=== PATIENT | female | born 1960 | race Caucasian/White ===

== ENCOUNTER 2023-11-26 17:03 | Emergency (ER) | payer OTHER ==
[2023-11-26 17:08] VITALS: TEMP 98.1
--- NOTE | 2023-11-26 17:08 | ERPHSYRPT ---
- History of Present Illness Time Seen by Provider: 11/26/23 17:08 Source: patient Exam Limitations: clinical condition Physician History: This is a 63-year-old white female patient who presents to the emergency department writhing in pain. She states that she hurts all over and cannot get in a comfortable position. Patient states her hips hurt her shoulders hurt. S he did not suffer any acute traumatic injury. Patient states she did not feel well this morning but approximately 3 hours ago she started having a headache and was vomiting and unable to hold any liquids down. She has known exposure to individuals with similar symptoms. Patient can take ibuprofen. She attempted to take an Advil but vomited that medication. Patient is never felt this poorly before in the past. She does not have chest pain or shortness of breath per her report Timing/Duration: today, worse Severity: moderate Associated Symptoms: nausea, vomiting, headaches, other (Generalized body and joint aches) Allergies/Adverse Reactions: Latex, Natural Rubber Allergy (Verified 11/26/23 17:18) aspirin Adverse Reaction (Verified 11/26/23 17:18) Travel Risk - International Travel Have you traveled outside of the country in past 3 weeks: No - Coronavirus Screening Are you exhibiting any of the following symptoms?: Yes Symptoms: Vomiting/Diarrhea, Headaches/Body Aches/Fatigue Close contact with a COVID-19 positive Pt in past 14-21 Days: No - Review of Systems Constitutional: No Symptoms Eyes: No Symptoms Ears, Nose, & Throat: No Symptoms Respiratory: No Symptoms Cardiac: No Symptoms Abdominal/Gastrointestinal: Nausea, Vomiting, Diarrhea, Appetite Changes Genitourinary Symptoms: No Symptoms Musculoskeletal: Arthralgias, Myalgias Skin: No Symptoms Neurological: Headache Psychological: No Symptoms Endocrine: No Symptoms Hematologic/Lymphatic: No Symptoms Immunological/Allergic: No Symptoms All Other Systems: Reviewed and Negative - Past Medical History Pertinent Past Medical History: Yes - Nursing Vital Signs Nursing Vital Signs: Initial Vital Signs Temperature 98.1 F 11/26/23 17:05 Pulse Rate 106 H 11/26/23 17:05 Respiratory Rate 20 11/26/23 17:05 Blood Pressure 134/74 11/26/23 17:05 O2 Sat by Pulse Oximetry 96 11/26/23 17:05 Pain Scale Pain Intensity 6 - Physical Exam General Appearance: moderate distress, alert, anxiety, thin Eye Exam: PERRL/EOMI, eyes nml inspection Ears, Nose, Throat Exam: normal ENT inspection, moist mucous membranes Neck Exam: normal inspection, non-tender, supple, full range of motion Respiratory Exam: normal breath sounds, lungs clear, airway intact, No chest tenderness, No respiratory distress Cardiovascular Exam: tachycardia Gastrointestinal/Abdomen Exam: soft, normal bowel sounds, No tenderness Pelvic Exam: not done Rectal Exam: not done Back Exam: normal inspection, normal range of motion, No CVA tenderness, No vertebral tenderness Extremity Exam: normal inspection, normal range of motion, pelvis stable Neurologic Exam: alert, oriented x 3, cooperative, mule rider II-XII nml as tested, nml station & gait Skin Exam: normal color, warm, dry Lymphatic Exam: No adenopathy SpO2 Interpretation: normal SpO2: 96 O2 Delivery: Room Air - Course Nursing assessment & vital signs reviewed: Yes Ordered Tests: Active Orders 24 hr Category Date Time Status Clean Catch Urine Specimen STAT Care 11/26/23 17:28 Active IV Insertion STAT Care 11/26/23 17:13 Active Pulse Oximetry (ED) STAT Care 11/26/23 17:13 Active HEAD WITHOUT CONTRAST [CT] Stat Exams 11/26/23 17:29 Taken BLOOD CULTURE Stat Lab 11/26/23 17:48 Received CBC W DIFF Stat Lab 11/26/23 17:13 Completed CMP Stat Lab 11/26/23 17:30 Completed Lactic Acid Stat Lab 11/26/23 17:19 Completed MONO SCREEN Stat Lab 11/26/23 17:30 Completed UA W/RFX UR CULTURE Stat Lab 11/26/23 17:13 Ordered Urine Triage Profile Stat Lab 11/26/23 Ordered Medication Summary Generic Name Dose Route Start Last Admin Trade Name Freq PRN Reason Stop Dose Admin Sodium Chloride 1,000 mls @ 999 mls/hr 11/26/23 18:28 11/26/23 18:33 Sodium Chloride 0.9% 1000 Ml IV 11/26/23 19:28 999 mls/hr .Q1H1M STA Administration Discontinued Medications Generic Name Dose Route Start Last Admin Trade Name Freq PRN Reason Stop Dose Admin Hydromorphone HCl 1 mg 11/26/23 17:14 11/26/23 17:28 Hydromorphone 1 Mg/1ml Inj IV 11/26/23 17:15 1 mg STAT ONE Administration Hydromorphone HCl Confirm 11/26/23 17:20 Hydromorphone 1 Mg/1ml Inj Administered 11/26/23 17:21 Dose 1 mg .ROUTE .STK-MED ONE Sodium Chloride 1,000 mls @ 999 mls/hr 11/26/23 17:13 11/26/23 18:30 Sodium Chloride 0.9% 1000 Ml IV 11/26/23 18:13 Infused .Q1H1M STA Infusion Sodium Chloride Confirm 11/26/23 17:20 Sodium Chloride 0.9% 1000 Ml Administered 11/26/23 17:21 Dose 1,000 mls @ ud .ROUTE .STK-MED ONE Sodium Chloride Confirm 11/26/23 18:31 Sodium Chloride 0.9% 1000 Ml Administered 11/26/23 18:32 Dose 1,000 mls @ ud .ROUTE .STK-MED ONE Ketorolac Tromethamine 30 mg 11/26/23 17:23 11/26/23 18:32 Ketorolac Tromethamine 30 Mg/Ml Inj IV 11/26/23 17:24 30 mg STAT ONE Administration Ketorolac Tromethamine Confirm 11/26/23 18:30 Ketorolac Tromethamine 30 Mg/Ml Inj Administered 11/26/23 18:31 Dose 30 mg .ROUTE .STK-MED ONE Ondansetron HCl 4 mg 11/26/23 17:13 11/26/23 17:28 Ondansetron Hcl 4 Mg/2 Ml Vial IV 11/26/23 17:14 4 mg STAT STA Administration Ondansetron HCl Confirm 11/26/23 17:20 Ondansetron Hcl 4 Mg/2 Ml Vial Administered 11/26/23 17:21 Dose 4 mg .ROUTE .STK-MED ONE Prochlorperazine Edisylate 5 mg 11/26/23 18:37 11/26/23 18:40 Prochlorperazine Edisylate 10 Mg/2 Ml Vial IV 11/26/23 18:38 5 mg STAT ONE Administration Prochlorperazine Edisylate Confirm 11/26/23 18:40 Prochlorperazine Edisylate 10 Mg/2 Ml Vial Administered 11/26/23 18:41 Dose 10 mg .ROUTE .STK-MED ONE Lab/Rad Data: Laboratory Result Diagrams 11/26/23 17:13 11/26/23 17:30 Laboratory Results 11/26/23 11/26/23 11/26/23 Range/Units 17:55 17:55 17:30 WBC (4.0-10.5) x10^3/uL RBC (4.1-5.4) x10^6/uL Hgb (12.0-16.0) g/dL Hct (35-47) % MCV (78-100) fL MCH (26-32) pg MCHC (32-36) g/dL RDW (11.5-14.0) % Plt Count (150-450) x10^3/uL MPV (7.5-11.0) fL Gran % (36.0-66.0) % Immature Gran % (Auto) (0.00-0.4) % Nucleat RBC Rel Count (0.00-0.1) % Eos # (Auto) (0-0.5) x10^3/uL Immature Gran # (Auto) (0.00-0.03) x10^3u/L Absolute Lymphs (auto) (1.0-4.6) x10^3/uL Absolute Monos (auto) (0.0-1.3) x10^3/uL Absolute Nucleated RBC (0.00-0.01) x10^3u/L Lymphocytes % (24.0-44.0) % Monocytes % (0.0-12.0) % Eosinophils % (0.00-5.0) % Basophils % (0.0-0.4) % Absolute Granulocytes (1.4-6.9) x10^3/uL Basophils # (0-0.4) x10^3/uL Sodium (137-145) mmol/L Potassium (3.5-5.1) mmol/L Chloride (98-107) mmol/L Carbon Dioxide (22-30) mmol/L Anion Gap (5-15) MEQ/L BUN (7-17) mg/dL Creatinine (0.52-1.04) mg/dL Estimated GFR ML/MIN Glucose (74-106) mg/dL Lactic Acid (0.4-2.0) Calcium (8.4-10.2) mg/dL Total Bilirubin (0.2-1.3) mg/dL AST (14-36) U/L ALT (0-35) U/L Alkaline Phosphatase (38-126) U/L Serum Total Protein (6.3-8.2) g/dL Albumin (3.5-5.0) g/dL Monoscreen NEGATIVE (NEGATIVE) Influenza Type A Ag NEGATIVE (NEGATIVE) Influenza Type B Ag NEGATIVE (NEGATIVE) RSV (PCR) NEGATIVE (NEGATIVE) SARS-CoV-2 (PCR) POSITIVE A (NEGATIVE) Group A Strep Antibody NOT DETECTED (NEGATIVE) Slides for Path Review 11/26/23 11/26/23 11/26/23 Range/Units 17:30 17:19 17:13 WBC 4.6 (4.0-10.5) x10^3/uL RBC 4.02 L (4.1-5.4) x10^6/uL Hgb 12.5 (12.0-16.0) g/dL Hct 37.4 (35-47) % MCV 93.0 (78-100) fL MCH 31.1 (26-32) pg MCHC 33.4 (32-36) g/dL RDW 11.8 (11.5-14.0) % Plt Count 187 (150-450) x10^3/uL MPV 9.7 (7.5-11.0) fL Gran % 79.1 H (36.0-66.0) % Immature Gran % (Auto) 0.2 (0.00-0.4) % Nucleat RBC Rel Count 0.0 (0.00-0.1) % Eos # (Auto) 0.05 (0-0.5) x10^3/uL Immature Gran # (Auto) 0.01 (0.00-0.03) x10^3u/L Absolute Lymphs (auto) 0.38 L (1.0-4.6) x10^3/uL Absolute Monos (auto) 0.48 (0.0-1.3) x10^3/uL Absolute Nucleated RBC 0.00 (0.00-0.01) x10^3u/L Lymphocytes % 8.3 L (24.0-44.0) % Monocytes % 10.4 (0.0-12.0) % Eosinophils % 1.1 (0.00-5.0) % Basophils % 0.9 (0.0-0.4) % Absolute Granulocytes 3.64 (1.4-6.9) x10^3/uL Basophils # 0.04 (0-0.4) x10^3/uL Sodium 132 L (137-145) mmol/L Potassium 3.6 (3.5-5.1) mmol/L Chloride 100 (98-107) mmol/L Carbon Dioxide 24 (22-30) mmol/L Anion Gap 12.7 (5-15) MEQ/L BUN 12 (7-17) mg/dL Creatinine 0.98 (0.52-1.04) mg/dL Estimated GFR 64.5 ML/MIN Glucose 135 H (74-106) mg/dL Lactic Acid 2.3 H (0.4-2.0) Calcium 9.6 (8.4-10.2) mg/dL Total Bilirubin 0.50 (0.2-1.3) mg/dL AST 22 (14-36) U/L ALT 12 (0-35) U/L Alkaline Phosphatase 64 (38-126) U/L Serum Total Protein 7.4 (6.3-8.2) g/dL Albumin 4.4 (3.5-5.0) g/dL Monoscreen (NEGATIVE) Influenza Type A Ag (NEGATIVE) Influenza Type B Ag (NEGATIVE) RSV (PCR) (NEGATIVE) SARS-CoV-2 (PCR) (NEGATIVE) Group A Strep Antibody (NEGATIVE) Slides for Path Review YES - Progress Progress: improved, pain not gone completely Progress Note: 11/26/23 17:27 This patient's medical issue is 1 of moderate complexity. The level of complexity in the workup performed is based on review of the patient's past medical history, review of the patient's medication list, review of the patient's drug allergy list, history present illness and physical findings on ex amination. The workup in this patient includes CT scan of the head, placement of intravenous line, infusion of normal saline solution, CBC, CMP, urinalysis, monotest, viral swabs 11/26/23 18:49 I interpreted the patient's laboratory workup. Patient is positive for COVID-[address] scan of the head without contrast was interpreted by the radiologist. This is a normal noncontrasted CT scan of the head study Counseled pt/family regarding: lab results, diagnosis, need for follow-up, rad results Medical Desision Making - Diagnostic Testing Diagnostic test were ordered, analyzed, and reviewed by me: Yes Radiological Interpretation: Reviewed by me, Teleradiologist Report - Risk of complications The pt has a mod risk of morbidity or mortality based on: Need for prescription drug management - Departure Departure Disposition: Home Clinical Impression: COVID-19 virus infection, Vomiting Condition: Stable Critical Care Time: No Referrals: DOCTOR,NO FAMILY [Primary Care Provider] - Follow up/PCP as directed Additional Instructions: Drink plenty of clear liquids. Take your medications as prescribed. Follow-up with your primary care provider on 11/29/2023 for further evaluation management. Prescriptions: Ondansetron ODT 4 MG [Zofran Odt 4 mg] 4 mg PO Q6H PRN PRN #10 tablet PRN Reason: Vomiting Prednisone 10 mg [Deltasone 10 mg] 10 mg PO TID #12 tablet Hydrocodone/Acetaminophen [Hydrocodone-Acetamn 7.5-325/15] 10 ml PO Q8H PRN #120 ml MDD 30 ml PRN Reason: Cough
[2023-11-26] MEDS ORDERED: Zofran 4 MG/2 ML VIAL IV STA (17:13)
[2023-11-26] MEDS ORDERED: Sodium Chloride 0.9% 1000 ML 1,000 ML IV STA ×2 (17:13→18:28)
[2023-11-26] MEDS ORDERED: Hydromorphone 1 mg/ml Injection IV ONE (17:14)
[2023-11-26] MEDS ORDERED: Sodium Chloride 0.9% 1000 ML 1,000 ML ONE ×2 (17:20→18:31)
[2023-11-26] MEDS ORDERED: Zofran 4 MG/2 ML VIAL ONE (17:20)
[2023-11-26] MEDS ORDERED: Hydromorphone 1 mg/ml Injection ONE (17:20)
[2023-11-26] MEDS ORDERED: TORAdol 30 mg Injection IV ONE (17:23)
[2023-11-26 18:01] LABS: Absolute Neutrophil Ct (ANC) 3.64 x10^3/uL (1.4-6.9); BASOPHIL % 0.9 % (0.0-0.4); Basophil (Absolute #) 0.04 x10^3/uL (0-0.4); Eosinophil % 1.1 % (0.00-5.0); Eosinophil (Absolute #) 0.05 x10^3/uL (0-0.5); Hematocrit 37.4 % (35-47); Hemoglobin 12.5 g/dL (12.0-16.0); IMMATURE GRAN # 0.01 x10^3u/L (0.00-0.03); IMMATURE GRAN % 0.2 % (0.00-0.4); Lymphocyte (Absolute #) 0.38 x10^3/uL (1.0-4.6); Lymphocytes % 8.3 % (24.0-44.0); Mean Corpuscular Hemoglobin 31.1 pg (26-32); Mean Corpuscular Hgb Concent. 33.4 g/dL (32-36); Mean Platelet Volume 9.7 fL (7.5-11.0); Monocyte (Absolute #) 0.48 x10^3/uL (0.0-1.3); Monocytes % 10.4 % (0.0-12.0); Neutrophil % 79.1 % (36.0-66.0); Platelet Count 187 x10^3/uL (150-450); Red Blood Count 4.02 x10^6/uL (4.1-5.4); Red Cell Distribution Width 11.8 % (11.5-14.0); White Blood Count 4.6 x10^3/uL (4.0-10.5)
[2023-11-26 18:17] LABS: ALBUMIN 4.4 g/dL (3.5-5.0); ANION GAP 12.7 MEQ/L (5-15); BILIRUBIN,TOTAL 0.5 mg/dL (0.2-1.3); Calcium 9.6 mg/dL (8.4-10.2); Creatinine 1 0.98 mg/dL (0.52-1.04); EST GLOMERULAR FILTRATION RATE 64.5 ML/MIN; Potassium 3.6 mmol/L (3.5-5.1); Total Protein 7.4 g/dL (6.3-8.2)
[2023-11-26 18:30] LABS: Slide Review 1 YES
[2023-11-26] MEDS ORDERED: TORAdol 30 mg Injection ONE (18:30)
[2023-11-26 18:37] LABS: INFLUENZA A NEGATIVE (NEGATIVE); INFLUENZA B NEGATIVE (NEGATIVE); RESPIRATORY SYNCTIAL VIRUS NEGATIVE (NEGATIVE)
[2023-11-26] MEDS ORDERED: Compazine 10 MG/2 ML IV ONE (18:37)
[2023-11-26] MEDS ORDERED: Compazine 10 MG/2 ML ONE (18:40)
[2023-11-26 18:42] LABS: SARS-CoV-2 Xpert Express POSITIVE (NEGATIVE)
[2023-11-26] MEDS ORDERED: HYDROCODONE-ACETAMIN 2.5-108/5 ML SOLUTION PO STA (19:05)
[2023-11-26 20:06] VITALS: BP 105/66; PULSE 80; RESP 18; O2SAT 95
[2023-11-26] MEDS ORDERED: HYDROCODONE-ACETAMIN 2.5-108/5 ML SOLUTION ONE (20:07)
--- NOTE | 2023-11-26 21:09 | XRAY ---
Indication: Worst headache. Multiple contiguous axial images obtained through the head without contrast. Comparison: None Age-appropriate global atrophy and minimal periventricular degenerative micro-ischemia bilaterally. No acute intracranial hemorrhage, abnormal extra-axial fluid collection, or mass effect. Fourth ventricle is midline without hydrocephalus. Howell-white matter differentiation preserved. Bony calvarium intact. Visualized paranasal sinuses and mastoid air cells are clear. Impression: No acute intracranial abnormalities.
== END 2023-11-26 20:16 | disposition home or self-care (01) ==
LOC: ED 17:03
DX: U07.1 COVID-19 (principal); R11.2 Nausea with vomiting, unspecified; M79.10 Myalgia, unspecified site; R51.9 Headache, unspecified; Z79.52 Long term (current) use of systemic steroids; Z79.891 Long term (current) use of opiate analgesic
CPT/HCPCS: 0241U; 36000; 36415; 70450; 80053; 83605; 85025; 86308; 87040; 87651; 94760; 96360; 96374; 96375; 99284; J1170; J1885; J2405; A9270-GY

== ENCOUNTER 2024-11-03 16:47 | Emergency (ER) | payer OTHER ==
[2024-11-03 16:56] VITALS: TEMP 97
--- NOTE | 2024-11-03 17:11 | ERPHSYRPT ---
- History of Present Illness Time Seen by Provider: 11/03/24 17:05 Source: patient, family Exam Limitations: no limitations Patient Subjective Stated Complaint: Pt has MDA 5 ILD and reports being short of breath Triage Nursing Assessment: Pt brought to the ER by her god daughter, jovi wnl, denies pain, pt gets SOB and weak when walking but is fine while laying in the bed, denies chest pain, doesn't appear to be in any distress Physician History: This is a 64-year-old white female patient who arrives by private vehicle accompanied by family member. 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 She presents with weakness. Typically, when this occurs the patient just rests and eventually her symptoms resolved. However, she did contact her clinic in [place] and they recommended that she come in to be evaluated and to have a creatinine phosphokinase drawn. Patient has a history of Parkinson disease as well. Patient denies chest pain. Her room air oxygenation saturation level is 99 to 100%. She states she is in no distress. She has no abdominal pain. She has had no fevers. She denies cough Timing/Duration: yesterday Severity of Dyspnea-Max: mild Severity of Dyspnea-Current: none Possible Cause: occasional episodes Associated Symptoms: weakness, No cough, No chest pain/discomfort Allergies/Adverse Reactions: Latex, Natural Rubber Allergy (Verified 11/03/24 16:57) aspirin Adverse Reaction (Verified 11/03/24 16:57) Home Medications: Carbidopa/Levodopa [Carbidopa-Levo ER 25-100 Tab] 1 each PO DAILY 11/03/24 [History] Citalopram Hydrobromide [Celexa] 40 mg PO DAILY 11/03/24 [History] Estrogens,Conjugated [Premarin] 0.625 mg PO DAILY 11/03/24 [History] Folic Acid 1 mg [Folate 1 mg] 1 mg PO DAILY 11/03/24 [History] Hydroxychloroquine Sulfate [Plaquenil] 400 mg PO UD 11/03/24 [History] Mycophenolate Sodium [Mycophenolic Acid] 720 mg PO BID 11/03/24 [History] Rituximab 500 MG [Rituxan 500 MG] 500 mg IV UD 11/03/24 [History] Hx Tetanus, Diphtheria Vaccination/Date Given: Yes Hx Influenza Vaccination/Date Given: No Hx Pneumococcal Vaccination/Date Given: Yes Travel Risk - International Travel Have you traveled outside of the country in past 3 weeks: No - Emerging Infectious Disease Are you exhibiting symptoms associated with any current EIDs: Yes Symptoms: Shortness of Breath - Review of Systems Constitutional: Weakness Eyes: No Symptoms Ears, Nose, & Throat: No Symptoms Respiratory: No Symptoms Cardiac: No Symptoms Abdominal/Gastrointestinal: No Symptoms Genitourinary Symptoms: No Symptoms Musculoskeletal: No Symptoms Skin: No Symptoms Neurological: No Symptoms Psychological: No Symptoms Endocrine: No Symptoms Hematologic/Lymphatic: No Symptoms Immunological/Allergic: No Symptoms All Other Systems: Reviewed and Negative - Past Medical History Pertinent Past Medical History: Yes Neurological History: Other Other Medical History: Parkinson's. Interstitial Lung Disease - participated in clinical trial in [place] that ended 10/13/2024 and continues to go there for treatment - Past Surgical History Past Surgical History: Yes Gastrointestinal: Appendectomy, Cholecystectomy Female Surgical History: Hysterectomy - Social History Smoking Status: Former smoker Exposure to second hand smoke: No Drug Use: none Patient Lives Alone: No - Social Determinants of Health Will the patient participate in the screening: Yes Do you worry about a steady place to live?: No Do you have any problems with any of the following?: No known problems In the past 12 months,have you had to go without utilities?: No Transportation Issues: No Has anyone in your support network made you feel unsafe?: No Have you or anyone in your house had to go without enough: No - Nursing Vital Signs Nursing Vital Signs: Initial Vital Signs Temperature 97.0 F 11/03/24 16:48 Pulse Rate 75 11/03/24 16:48 Blood Pressure 114/96 11/03/24 16:48 O2 Sat by Pulse Oximetry 100 11/03/24 16:48 Pain Scale Pain Intensity 0 - Physical Exam General Appearance: no apparent distress, alert, anxiety, thin Eye Exam: PERRL/EOMI, eyes nml inspection Ears, Nose, Throat Exam: hearing grossly normal, normal ENT inspection, normal pharynx Neck Exam: normal inspection, non-tender, supple, full range of motion Respiratory Exam: normal breath sounds, lungs clear, airway intact, No chest tenderness, No respiratory distress Cardiovascular/Chest Exam: normal heart sounds, regular rate/rhythm Abdominal/Gastrointestinal Exam: soft, normal bowel sounds, No tenderness Rectal Exam: not done Extremity Exam: non-tender, normal range of motion, normal inspection, normal capillary refill, no calf tenderness, no pedal edema, pelvis stable Neurologic Exam: alert, oriented x 3, cooperative, certified endoscopy technician II-XII nml as tested, nml cerebellar function, nml station & gait, sensation nml Skin Exam: normal color, warm, dry Lymphatic Exam: No adenopathy SpO2 Interpretation: normal SpO2: 100 O2 Delivery: Room Air - Course Nursing assessment & vital signs reviewed: Yes EKG Interpreted by Me: RATE (73), Sinus Rhythm, NORMAL AXIS, NORMAL INTERVALS, NORMAL QRS, NORMAL ST-T, Other (No acute ischemic changes on today's twelve-lead EKG. QTc is 429) Ordered Tests: Active Orders 24 hr Category Date Time Status Account Services Representative STAT Care 11/03/24 17:10 Active EKG-ER Only STAT Care 11/03/24 17:10 Active IV Insertion STAT Care 11/03/24 17:10 Active CHEST 1 VIEW (PORTABLE) Stat Exams 11/03/24 17:10 Taken BLOOD CULTURE Stat Lab 11/03/24 17:52 Received CBC W DIFF Stat Lab 11/03/24 17:52 Completed CK-Creatinine Phosphokinase Stat Lab 11/03/24 17:52 Completed CMP Stat Lab 11/03/24 17:52 Completed MAGNESIUM Stat Lab 11/03/24 17:52 Completed MONO SCREEN Stat Lab 11/03/24 17:59 Completed NT PRO BNPII Stat Lab 11/03/24 17:52 Completed TROPONIN Q4H Lab 11/03/24 17:52 Completed TROPONIN Q4H Lab 11/03/24 21:15 Ordered TROPONIN Q4H Lab 11/04/24 01:15 Ordered Lab/Rad Data: Laboratory Result Diagrams 11/03/24 17:52 11/03/24 17:52 Laboratory Results 11/03/24 11/03/24 11/03/24 Range/Units 17:59 17:52 17:52 WBC (3.98-10.04) x10^3/uL RBC (3.93-5.22) x10^6/uL Hgb (11.2-15.7) g/dL Hct (34.1-44.9) % MCV (79.4-94.8) fL MCH (25.6-32.2) pg MCHC (32.2-35.5) g/dL RDW (11.7-14.4) % Plt Count (182-369) x10^3/uL MPV (9.4-12.3) fL Gran % (34.0-71.1) % Immature Gran % (Auto) (0.001-0.429) % Nucleat RBC Rel Count (0.00-0.2) % Eos # (Auto) (0.04-0.36) x10^3/uL Immature Gran # (Auto) (0.001-0.031) x10^3u/L Absolute Lymphs (auto) (1.18-3.74) x10^3/uL Absolute Monos (auto) (0.24-0.86) x10^3/uL Absolute Nucleated RBC (0.00-0.012) x10^3u/L Lymphocytes % (19.3-51.7) % Monocytes % (4.7-12.5) % Eosinophils % (0.7-5.8) % Basophils % (0.1-1.2) % Absolute Granulocytes (1.56-6.13) x10^3/uL Basophils # (0.01-0.08) x10^3/uL Sodium 135 (135-145) mmol/L Potassium 3.8 (3.5-5.1) mmol/L Chloride 104 (98-107) mmol/L Carbon Dioxide 27 (22-30) mmol/L Anion Gap 8.6 (5-15) MEQ/L BUN 18 H (7-17) mg/dL Creatinine 0.87 (0.52-1.04) mg/dL Estimated GFR 73.9 ML/MIN Glucose 98 (74-106) mg/dL Calcium 9.5 (8.4-10.2) mg/dL Magnesium 1.9 (1.6-2.3) mg/dL Total Bilirubin 0.30 (0.2-1.3) mg/dL AST 20 (14-36) U/L ALT 14 (0-35) U/L Alkaline Phosphatase 67 (38-126) U/L Creatine Kinase 25 L (30-135) U/L Troponin I < 0.012 (0.000-0.033) ng/mL NT-Pro-B Natriuret Pep 33.9 (<300) pg/mL Serum Total Protein 6.7 (6.3-8.2) g/dL Albumin 4.0 (3.5-5.0) g/dL Monoscreen NEGATIVE (NEGATIVE) 11/03/24 Range/Units 17:52 WBC 4.0 (3.98-10.04) x10^3/uL RBC 3.99 (3.93-5.22) x10^6/uL Hgb 12.0 (11.2-15.7) g/dL Hct 37.1 (34.1-44.9) % MCV 93.0 (79.4-94.8) fL MCH 30.1 (25.6-32.2) pg MCHC 32.3 (32.2-35.5) g/dL RDW 12.1 (11.7-14.4) % Plt Count 215 (182-369) x10^3/uL MPV 9.4 (9.4-12.3) fL Gran % 68.1 (34.0-71.1) % Immature Gran % (Auto) 0.2 (0.001-0.429) % Nucleat RBC Rel Count 0.0 (0.00-0.2) % Eos # (Auto) 0.22 (0.04-0.36) x10^3/uL Immature Gran # (Auto) 0.01 (0.001-0.031) x10^3u/L Absolute Lymphs (auto) 0.56 L (1.18-3.74) x10^3/uL Absolute Monos (auto) 0.45 (0.24-0.86) x10^3/uL Absolute Nucleated RBC 0.00 (0.00-0.012) x10^3u/L Lymphocytes % 14.0 L (19.3-51.7) % Monocytes % 11.2 (4.7-12.5) % Eosinophils % 5.5 (0.7-5.8) % Basophils % 1.0 (0.1-1.2) % Absolute Granulocytes 2.73 (1.56-6.13) x10^3/uL Basophils # 0.04 (0.01-0.08) x10^3/uL Sodium (135-145) mmol/L Potassium (3.5-5.1) mmol/L Chloride (98-107) mmol/L Carbon Dioxide (22-30) mmol/L Anion Gap (5-15) MEQ/L BUN (7-17) mg/dL Creatinine (0.52-1.04) mg/dL Estimated GFR ML/MIN Glucose (74-106) mg/dL Calcium (8.4-10.2) mg/dL Magnesium (1.6-2.3) mg/dL Total Bilirubin (0.2-1.3) mg/dL AST (14-36) U/L ALT (0-35) U/L Alkaline Phosphatase (38-126) U/L Creatine Kinase (30-135) U/L Troponin I (0.000-0.033) ng/mL NT-Pro-B Natriuret Pep (<300) pg/mL Serum Total Protein (6.3-8.2) g/dL Albumin (3.5-5.0) g/dL Monoscreen (NEGATIVE) - Progress Progress: re-examined Air Movement: good Progress Note: 11/03/24 18:01 My medical decision making and the assignment of moderate complexity to this patient's medical issue today is based on review of the patient's past medical history, review of patient's medication list, reviewed patient drug allergy list, history present illness and physical findings on examination. The workup in this patient includes placement of intravenous line, infusion of normal saline solution, CBC, CMP, twelve-lead EKG, troponin level, CK, viral swabs, monotest and chest x-ray. Differential diagnosis includes was not limited to anemia, interstitial lung disease/MDA dermatomyositis flareup, arrhythmia, electrolyte abnormalities, pneumonia 11/03/24 19:18 The patient refuses viral swabs. I interpreted the patient's laboratory data results. Based on the laboratory data results there are no acute, emergent medical issues. The CK, which the patient desired to have drawn per her clinic in [place], was 25. It is not elevated. The preliminary report of the chest x-ray was interpreted by me. There are no acute cardiopulmonary abnormalities Blood Culture(s) Obtained: No Antibiotics given: No Counseled pt/family regarding: lab results, diagnosis, need for follow-up Medical Desision Making - Independent Historian Additional History obtained from: Family - Diagnostic Testing Diagnostic test were ordered, analyzed, and reviewed by me: Yes Radiological Interpretation: Interpreted by me, Teleradiologist Report - Risk of complications Low Risk: Low risk of morbidity from additional dx testing or treatment - Departure Departure Disposition: Home Clinical Impression: Weakness Condition: Stable Critical Care Time: No Referrals: DOCTOR,NO FAMILY [NON-STAFF PHY W/O PRIVILEGES] - Follow up/PCP as directed Additional Instructions: Drink plenty fluids. Take your medications as prescribed. Call your clinic in [place] to update them regarding your laboratory data results.
[2024-11-03 18:13] LABS: Absolute Neutrophil Ct (ANC) 2.73 x10^3/uL (1.56-6.13); Basophil (Absolute #) 0.04 x10^3/uL (0.01-0.08); Eosinophil % 5.5 % (0.7-5.8); Eosinophil (Absolute #) 0.22 x10^3/uL (0.04-0.36); Hematocrit 37.1 % (34.1-44.9); IMMATURE GRAN # 0.01 x10^3u/L (0.001-0.031); IMMATURE GRAN % 0.2 % (0.001-0.429); Lymphocyte (Absolute #) 0.56 x10^3/uL (1.18-3.74); Mean Corpuscular Hemoglobin 30.1 pg (25.6-32.2); Mean Corpuscular Hgb Concent. 32.3 g/dL (32.2-35.5); Mean Platelet Volume 9.4 fL (9.4-12.3); Monocyte (Absolute #) 0.45 x10^3/uL (0.24-0.86); Monocytes % 11.2 % (4.7-12.5); Neutrophil % 68.1 % (34.0-71.1); Platelet Count 215 x10^3/uL (182-369); Red Blood Count 3.99 x10^6/uL (3.93-5.22); Red Cell Distribution Width 12.1 % (11.7-14.4)
[2024-11-03 18:36] LABS: ANION GAP 8.6 MEQ/L (5-15); BILIRUBIN,TOTAL 0.3 mg/dL (0.2-1.3); Calcium 9.5 mg/dL (8.4-10.2); Creatinine 1 0.87 mg/dL (0.52-1.04); EST GLOMERULAR FILTRATION RATE 73.9 ML/MIN; MAGNESIUM 1.9 mg/dL (1.6-2.3); NT PRO BNPII 33.9 pg/mL (<300); Potassium 3.8 mmol/L (3.5-5.1); Total Protein 6.7 g/dL (6.3-8.2)
[2024-11-03 19:09] VITALS: BP 129/82; PULSE 74; RESP 19
[2024-11-03 19:20] VITALS: O2SAT 100
[2024-11-03 21:02] LABS: Slide Review 1 YES
--- NOTE | 2024-11-04 08:14 | XRAY ---
Indication: Short of breath. Comparison: None Portable chest hyperinflated and clear. Heart and mediastinal structures within normal limits. Bony thorax intact with osteopenia and old right clavicle fracture. Impression: Nonacute hyperinflated chest.
== END 2024-11-03 19:29 | disposition home or self-care (01) ==
LOC: ED 16:47
DX: R53.1 Weakness (principal)
CPT/HCPCS: 36415; 71045; 80053; 82550; 83735; 83880; 84484; 85025; 86308; 87040; 93005; 93041; 99284